=== PATIENT | female | born 1955 | race Caucasian/White ===

== ENCOUNTER 2019-10-17 00:47 | Emergency (ER) | payer OTHER ==
[~2019-10-17] VITALS: Ht 160 cm; Wt 54.4 kg
--- NOTE | 2019-10-17 01:16 | ED General ---
General Chief Complaint: General Problems/Pain Stated Complaint: MEDICAL CLEARENCE+ Source of Information: Patient Exam Limitations: No Limitations History of Present Illness Date Seen by Provider: Oct 17, 2019 Time Seen by Provider: 01:02 Initial Comments The patient is a 64-year-old female who presents in police custody for medical screening exam. The patient was arrested for DUI. Her only complaint is some redness and swelling to her bilateral feet and ankles. She states that yesterday she was walking around's "a client's house" barefoot before her symptoms began. She has no other complaints. Timing/Duration: 1 Day Severity: Moderate Associated Systoms: Other (b/l foot/ankle redness/edema) Allergies and Home Medications Allergies Coded Allergies: Sulfa (Sulfonamide Antibiotics) (Verified Allergy, Unknown, 10/17/19) propofol (Verified Allergy, Unknown, 10/17/19) Patient Home Medication List Home Medication List Reviewed: Yes Review of Systems Review of Systems Constitutional: no symptoms reported EENTM: no symptoms reported Respiratory: no symptoms reported Cardiovascular: no symptoms reported Genitourinary: no symptoms reported Musculoskeletal: other (b/l foot/ankle edema) Skin: other (b/l foot/ankle redness) Psychiatric/Neurological: No Symptoms Reported Hematologic/Lymphatic: No Symptoms Reported Immunological/Allergic: no symptoms reported All Other Systems Reviewed Negative Unless Noted: Yes Past Odgpszy-Utudab-Xeznzo Hx Past Med/Social Hx: Reviewed Nursing Past Med/Soc Hx Patient Social History Alcohol Use: Occasionally Uses Recreational Drug Use: No Smoking Status: Never a Smoker 2nd Hand Smoke Exposure: No Recent Foreign Travel: No Contact w/Someone Who Travel: No Recent Hopitalizations: No Physical Abuse: No Sexual Abuse: No Past Medical History Surgeries: No Respiratory: No Cardiac: No Neurological: No Genitourinary: No Gastrointestinal: No Musculoskeletal: No Endocrine: Yes Hypothyroidsim HEENT: No Cancer: No Psychosocial: Yes Depression Integumentary: No Blood Disorders: No Physical Exam Vital Signs Capillary Refill : Height, Weight, BMI Height: '" Weight: lbs. oz. kg; BMI Method: General Appearance: No Apparent Distress, WD/WN Eyes: Bilateral Eye Normal Inspection, Bilateral Eye PERRL, Bilateral Eye EOMI HEENT: PERRL/EOMI, Pharynx Normal Neck: Normal Inspection, Supple Respiratory: Lungs Clear, Normal Breath Sounds, No Accessory Muscle Use, No Respiratory Distress Cardiovascular: Regular Rate, Rhythm, Normal Peripheral Pulses Extremity: Normal Capillary Refill, Normal Range of Motion, No Calf Tenderness, Pedal Edema, Other (3+ bilateral foot and ankle edema) Neurologic/Psychiatric: Alert, Oriented x3, No Motor/Sensory Deficits, Normal Mood/Affect Skin: Warm/Dry, Other (bilateral foot and ankle erythema with warmth) Progress/Results/Core Measures Suspected Sepsis SIRS Temperature: Pulse: Respiratory Rate: Blood Pressure / Mean: Results/Orders Vital Signs/I&O Capillary Refill : Progress Note : Progress Note @0115 - the patient has had a medical screening exam and is stable for discharge. She appears to have bilateral foot and ankle cellulitis. She'll go home with a prescription for clindamycin. Advised patient to follow up with her PCP within the next 1-2 days and to return to the emergency department immediately for new or worsening symptoms. Departure Impression Primary Impression: Cellulitis of foot Disposition: HOME, SELF-CARE Condition: Stable Departure-Patient Inst. Decision time for Depature: 01:19 Referrals: NO,LOCAL PHYSICIAN (PCP/Family) Primary Care Physician Patient Instructions: Cellulitis (Skin Infection), Adult (DC) Add. Discharge Instructions: Take the prescribed medication as directed. Follow-up with your doctor in the next 1-2 days. Return to the emergency Department immediately for new or worsening symptoms. Scripts Clindamycin HCl (Clindamycin HCl) 300 Mg Capsule 300 MG PO Q6H for 10 Days, #40 CAP Prov: LAURA POWELL DO 10/17/19 LAURA POWELL DO Oct 17, 2019 01:16
[2019-10-17] MEDS ORDERED: CLIN300C11 PO (01:21)
[2019-10-17 01:22] VITALS: BP 173/87
== END 2019-10-17 01:23 | disposition home or self-care (01) ==
LOC: ER FS 00:55
DX: L03.115 Cellulitis of right lower limb (principal); L03.116 Cellulitis of left lower limb; Z88.2 Allergy status to sulfonamides; Z88.8 Allergy status to other drugs, medicaments and biological substances
CPT/HCPCS: 99281